=== PATIENT | male | born 1995 | race Two or more races ===

== ENCOUNTER 2024-12-08 09:57 | Emergency (ER) | payer OTHER ==
[~2024-12-08] VITALS: Ht 185.4 cm; Wt 68.2 kg
[2024-12-08 10:02] VITALS: BP 125/71; PULSE 126; RESP 14; TEMP 98; O2SAT 97
--- NOTE | 2024-12-08 10:21 | ED.PDOC ---
History of Present Illness HPI Comments This is a 29 year old male LETICIA presenting to the ED with chief complaint of near-syncope. Patient reports that he had been outside walking for a long period of time before he started to experience a near-syncopal episode, feeling very lightheaded. Patient relays that he felt as if his vision was tunnel visioning before EMS arrived. Patient denies any chest pain, dizziness, SOB, headache, or fever. Chief Complaint: Syncope Time Seen by MD: 10:14 Reviewed Notes: Nurses Notes, Aws Developer Notes, Medications, Allergies Allergies: Coded Allergies: NO KNOWN ALLERGIES (Unverified , 12/08/24) Information Source: Patient, Emergency Med Personnel Mode of Arrival: EMS Severity: Moderate Timing: Hours Duration: Since onset Prehospital treatment: None Past Medical History Past Medical History (Other): Chronic back pain Surgical History (Other): Left arm surgery Family History Family History: Reviewed,noncontributory to illness Social History Smoker: Cigarettes Alcohol: Denies ETOH Use Drugs: Marijuana Lives In: Home Constitutional: denies: chills, diaphoresis, fatigue, fever, malaise, sweats, weakness, others EENTM: denies: blurred vision, double vision, ear bleeding, ear discharge, ear drainage, ear pain, ear ringing, eye pain, eye redness, hearing loss, mouth pain, mouth swelling, nasal discharge, nose bleeding, nose congestion, nose pain, photophobia, tearing, throat pain, throat swelling, voice changes, others Respiratory: denies: cough, hemoptysis, orthopnea, SOB at rest, shortness of breath, SOB with excertion, stridor, wheezing, others Cardiovascular: reports: lightheadedness; denies: chest pain, dizzy spells, diaphoresis, Dyspnea on exertion, edema, irregular heart beat, left arm pain, palpitations, PND, syncope, others Gastrointestinal: denies: abdomen distended, abdominal pain, blood streaked bowels, constipated, diarrhea, dysphagia, difficulty swallowing, hematemesis, melena, nausea, poor appetite, poor fluid intake, rectal bleeding, rectal pain, vomiting, others Genitourinary: denies: burning, dysuria, flank pain, frequency, hematuria, incontinence, penile discharge, penile sore, pain, testicle pain, testicle swelling, urgency, others Neurological: denies: dizziness, fainting, headache, left sided numbness, left sided weakness, numbness, paresthesia, pre-existing deficit, right sided numbness, right sided weakness, seizure, speech problems, tingling, tremors, we akness, others Musculoskeletal: denies: back pain, gout, joint pain, joint swelling, muscle pain, muscle stiffness, neck pain, others Integumetry: denies: bruises, change in color, change in hair/nails, dryness, laceration, lesions, lumps, rash, wounds, others Allergic/Immunocompromised: denies: Difficulty Healing, Frequent Infections, Hives, Itching, others Hematologic/Lymphatic: denies: anemia, blood clots, easy bleeding, easy bruising, swollen glands, others Endocrine: denies: excessive hunger, excessive sweating, excessive thirst, excessive urination, flushing, intolerance to cold, intolerance to heat, unexplained weight gain, unexplained weight loss, others Psychiatric: denies: anxiety, bipolar disorder, depression, hopeless, panic disorder, schizophrenia, sleepless, suicidal, others All Other Systems: Reviewed and Negative Physical Exam General Appearance: No Apparent Distress HEENT: Normal ENT Inspection, Pharynx Normal, TMs Normal Neck: Full Range of Motion, Non-Tender, Normal, Normal Inspection Respiratory: Chest Non-Tender, Lungs Clear, No Accessory Muscle Use, No Respiratory Distress, Normal Breath Sounds Cardiovascular: No Edema, No JVD, No Murmur, No Gallop, Normal Peripheral Pulses, Regular Rate/Rhythm Breast Exam: Deferred Gastrointestinal: No Organomegaly, Non Tender, No Pulsatile Mass, Normal Bowel Sounds, Soft Genitalia: Deferred Pelvic: Deferred Rectal: Deferred Extremities: No calf tenderness, Normal capillary refill, Normal inspection, Normal range of motion, Non-tender, No pedal edema Musculoskeletal : Apperance: Normal Neurologic: Alert, manager willow II-XII nml as Tested, No Motor Deficits, Normal Affect, Normal Mood, No Sensory Deficits Cerebellar Function: Normal Reflexes: Normal Skin: Dry, Normal Color, Warm Lymphatic: No Adenopathy Was a procedure done? Was a procedure done?: No Differential Dx Considerations may include: Dehydration, electrolyte imbalance X-Ray, Labs, Meds, VS Vital Signs Date Time Temp Pulse Resp B/P (MAP) Pulse Ox O2 Delivery O2 Flow Rate FiO2 12/08/24 10:02 126 12/08/24 10:02 98.0 120 14 125/71 97 98.0 Labs were ordered on this patient. The urine test is ordered on this patient It seems that the patient has eloped from the department's Time of 1ST Reevaluation: 13:02 Reevaluation 1ST: Improved Patient Education/Counseling: Diagnosis, Treatment, Prognosis, Need For Follow Up Family Education/Counseling: No Family Present SEPSIS Sepsis Screen Date sepsis recognized/suspect: Dec 08, 2024 Time Sepsis recognized/suspect: 1004 Recent Procedure: No On Antibiotic Therapy: No Respiratory Rate >20: No Heart Rate >90: Yes Temp<36 C (96.8 F) or >38.3 C: No SBP <90 or MAP <65 mmHG: No New Acute Mental Status Change: No Is the patient on CPAP, BIPAP,: No Physician Orders Urinalysis (12/08/24 10:14) Vital Signs Date Time Temp Pulse Resp B/P (MAP) Pulse Ox O2 Delivery O2 Flow Rate FiO2 12/08/24 10:02 126 12/08/24 10:02 98.0 120 14 125/71 97 98.0 Departure 1 Departure Time of Disposition: 13:02 Impression: Primary Impression: Near syncope Additional Impression: Dehydration Disposition: 07 LEFT AWOL/ELOPED Condition: Fair Discharged With: Self Critical Care Note Critical Care Time?: No Stability Stability form required: No Heart Score Heart Score: Heart Score Response (Comments) Value History N/A 0 EKG N/A 0 Age N/A 0 Risk Factors N/A 0 Troponin N/A 0 Total 0 I personally scribed for QUE FLAHERTY MD ([email or web address]) on 12/08/24 at 10:21. Electronically submitted by Taqueria Holman ([email or web address]). QUE FLAHERTY MD Dec 08, 2024 10:21
--- NOTE | 2024-12-08 10:35 | ECG ---
[facility] Test Date: 2024-12-08 Test Time: 09:51:34 Pat Name: CHUCK THOMAS Department: Room: Gender: M Grip Boss: SANDRINE : 1995 Requested By: QEU FLAHERTY Order Number: [id number] Reading MD: Juan Stone Measurements Intervals [place] Rate: 126 P: 46 NC: 127 QRS: -73 QRSD: 91 T: 27 QT: 321 QTc: 465 Interpretive Statements Sinus tachycardia Probable left atrial enlargement Left axis deviation Electronically Signed On 12-13-2024 19:15:43 PDT by Juan Stone Please click the below link to view image of tracing.
== END 2024-12-08 13:09 | disposition left against medical advice (07) ==
LOC: EDBD 09:57 → ER 09:57
DX: R55 Syncope and collapse (principal); E86.0 Dehydration; F12.90 Cannabis use, unspecified, uncomplicated; F17.210 Nicotine dependence, cigarettes, uncomplicated; G89.29 Other chronic pain; Z98.890 Other specified postprocedural states
CPT/HCPCS: 93005